=== PATIENT | female | born 1995 | race Caucasian/White ===

== ENCOUNTER → 2018-12-25 | Outpatient (CLI) | payer BC ==
--- NOTE | 2018-12-26 08:57 | US ---
EXAM DESCRIPTION: Pelvis Transvaginal CLINICAL HISTORY: 23 years, Female, AMENORRHEA UNSPEC COMPARISON: None. FINDINGS: Transvaginal pelvic ultrasound. The uterus measures 3 x 2.7 x 7.2 cm. Few small nabothian cysts in the upper cervix. Prominent endometrium measures 8.3 mm in maximal thickness, within normal limits for age. Right ovary measures 2.6 x 2.4 x 3.7 cm. Multiple small follicles in the right ovary color Doppler imaging shows positive arterial and venous flow. Left ovary measures 2.1 x 2.2 x 3.5 cm. Multiple small follicles in the left ovary. Color Doppler imaging shows positive arterial and venous flow in the left ovary. There is no adnexal mass or abnormal free fluid. Trace fluid in the cul-de-sac is considered physiologic, within normal limits. IMPRESSION: Normal sonographic appearance of the uterus and ovaries. Electronically signed by: Kavon Bauman MD 12/26/2018 8:55 AM CDT
== END ==
LOC: US 10:19
PROVIDERS: ATTEND Nurse Practitioner Acute Care
DX: N91.2 Amenorrhea, unspecified (principal)